=== PATIENT | male | born 1990 | race Caucasian/White ===

== ENCOUNTER 2020-12-04 06:52 | Day surgery (SDC) | payer BC, OTHER ==
[2020-12-02 12:50] VITALS: BMI 23.3
[~2020-12-04 06:52] MED LIST: DEXAMETHASONE SOD PHOSPHATE 4 MG/ML 1 ML VIAL IV ONE; FAMOTIDINE 20 MG/2 ML VIAL IV PRN; LACTATED RINGERS 1,000 ML IV SCH; LIDOCAINE 1% (10MG/ML) FOR IV START INTRADERMA PRN; MIDAZOLAM 2 MG/2 ML VIAL IV PRN; ONDANSETRON 4 MG/2 ML VIAL IVP PRN
[2020-12-04] MEDS ORDERED: HYDROmorphone 0.5 MG/0.5 ML SYRINGE IVP PRN (07:00)
[2020-12-04 07:16] VITALS: TEMP 97.7
[2020-12-04] MEDS ORDERED: ONDANSETRON 4 MG/2 ML VIAL IVP ONE (07:32)
[2020-12-04] MEDS ORDERED: SUCCINYLCHOLINE CHLORIDE 100 MG/5 ML SYR IV ONE (07:49)
[2020-12-04] MEDS ORDERED: MIDAZOLAM 2 MG/2 ML VIAL ONE (07:49)
[2020-12-04] MEDS ORDERED: fentaNYL (PF) 50 MCG/ML 2 ML AMP ONE (07:49)
[2020-12-04] MEDS ORDERED: LIDOCAINE 1% INJ 10MG/ML (20 ML MDV) ONE (07:49)
[2020-12-04] MEDS ORDERED: PROPOFOL 10 MG/ML 20 ML VIAL IV ONE (07:49)
[2020-12-04] MEDS ORDERED: LIDOCAINE 1%-EPI 1:100,000 20 ML VIAL SQ ONE ×2 (08:08)
[2020-12-04] MEDS ORDERED: BACITRACIN ZINC 500 UNIT/GM OINT 28.4 GM TUBE TOPICAL ONE (08:39)
--- NOTE | 2020-12-04 08:47 | P.OP ---
Date of Procedure: 12/04/20 Preoperative Diagnosis: Left cheek and left temporal cysts Postoperative Diagnosis: Same Procedure(s) Performed: Excision left medial cheek cyst with complex closure 3.7 cm Excision left druze cyst with layered closure 2.2 cm Anesthesia: STAN Surgeon: Carlitos Ricketts Estimated Blood Loss (ml): 2 Pathology: other (Left cheek and left druze cysts) Condition: stable Disposition: PACU Indications for Procedure: 29-year-old white male with progressively enlarging left medial cheek and druze cysts Operative Findings: Left medial cheek and left temporal cysts Description of Procedure: The patient was brought in the operative suite and placed in supine position. Patient underwent induction of general anesthesia with oral endotracheal intubation without difficulty. The patient was prepped and draped in usual aseptic fashion. 1% lidocaine with 1-100,000 epinephrine was infused subcutaneously and field block fashion around both of the lesions. This was left to work for 7 minutes vasoconstrictive effect. The smaller temporal lesion is then excised in elliptical fashion in the direction of the relaxed skin tension lines including a portion of the overlying skin as it was close to the skin and there was an overlying pore. This appeared to be consistent with a cyst. The cyst wall was intact. Hemostasis was gained with electrocautery and the wound was closed with inverted interrupted 5-0 Vicryl and subcutaneous tissue and skin closed with running locking 5-0 Prolene suture. Bacitracin ointment was placed as well as sterile dressing. The left medial cheek lesion was then excised again with overlying skin el liptical fashion. This is a large sebaceous cyst down to the muscular layer. Disposable nerve monitor was utilized to monitor facial nerve during this portion of the case as well as of the temporal lesion and was noted to be functioning well at 0.5 mA deep to the muscular layer. The larger left medial cheek cyst was excised from the surrounding tissue grossly entirely with the muscular layer left intact and therefore protecting the facial nerve branches. Hemostasis was gained with bipolar cautery. Due to the large size of this lesion for complex closure was required with reorienting the incision and rotating of tissue into the relaxed tension lines. The closure was utilized to the subcutaneous tissue with inverted interrupted 5-0 Vicryl suture skin was closed with running locking 5-0 Prolene suture. Bacitracin ointment and sterile dressings were placed. The patient was allowed to emerge from general anesthesia having tolerated procedure well was extended the operating suite and transferred to postop recovery area in satisfactory condition.
[2020-12-04 09:08] VITALS: RESP 16
[2020-12-04 09:50] VITALS: BP 111/74; PULSE 73
== END 2020-12-04 10:05 | disposition home or self-care (01) ==
LOC: OR 06:52
PROVIDERS: ATTEND Otolaryngology
DX: L72.0 Epidermal cyst (principal); F17.210 Nicotine dependence, cigarettes, uncomplicated; Z82.49 Family history of ischemic heart disease and other diseases of the circulatory system
CPT/HCPCS: 88304; 11444; 13132; 11443; 12051; J2250; J1100; J2405; J0690; J2001; J3010; J0330; J2704